=== PATIENT | male | born 1955 | race Caucasian/White ===

== ENCOUNTER 2019-02-25 13:05 | Day surgery (SDC) | payer BC ==
[2019-02-24 14:20] VITALS: BMI 35.9
[2019-02-25 13:38] LABS: HEMATOCRIT 44.1 % (35.4-49); HEMOGLOBIN 14.5 GM/dL (11.7-16.9); MCH 30.6 pg (25.7-33.7); MEAN CELL VOLUME 92.8 fl (80-96); MEAN PLT VOLUME 7.6 fl (7.5-11.1); PLATELET COUNT 323 K/MM3 (134-434); RBC 4.75 M/mm3 (4.00-5.60); RDW 13.3 % (11.9-15.9); WHITE BLOOD COUNT 5.7 K/mm3 (4.0-10.0)
[2019-02-25] MEDS ORDERED: LIDOCAINE VISCOUS 2% ORAL/TOP 20 ML UNIT-DOSE CUP ONE (13:38)
[2019-02-25 13:56] LABS: CALCIUM 9.4 mg/dL (8.5-10.1); CREATININE 1.2 mg/dL (0.55-1.3); POTASSIUM 4.2 mmol/L (3.5-5.1)
[2019-02-25 14:09] LABS: INR 1.18 (0.83-1.09); PROTHROMBIN TIME (PATIENT) 13.9 SEC (9.7-13.0)
[2019-02-25 14:12] LABS: ACTIVATED PTT 40.3 SECONDS (25.2-36.5)
[2019-02-25 14:51] VITALS: TEMP 97.5
[2019-02-25 15:16] VITALS: PULSE 59
[2019-02-25 15:36] VITALS: BP 111/71
--- NOTE | 2019-02-25 15:59 | PROC ---
Cardioversion Indication: Atrial flutter Risks and Benefits Explained: Yes Consent on Chart: Yes BEVERLEY done prior to Cardioversion: Yes BEVERLEY findings: no intracardiac thrombus Patient anticoagulated: Yes - Procedure Anesthesiologist present: Yes Medication given: propofol Joules delivered: 120x1 Rhythm post cardioversion: sr Remarks: Pt tolerated procedure well, no complications.
--- NOTE | 2019-02-25 16:02 | EKG ---
Test Reason : Blood Pressure : / mmHG Vent. Rate : 056 BPM Atrial Rate : 056 BPM P-R Int : 180 ms QRS Dur : 110 ms QT Int : 434 ms P-R-T Axes : 041 056 062 degrees QTc Int : 418 ms SINUS BRADYCARDIA OTHERWISE NORMAL ECG WHEN COMPARED WITH ECG OF 17-JUN-2011 00:32, NO SIGNIFICANT CHANGE WAS FOUND Confirmed by DAVIN CLARK MD ([id number]) on 02/25/2019 4:02:11 PM Referred By: Davin Clark Confirmed By:DAVIN CLARK MD
--- NOTE | 2019-02-25 16:08 | ECHO ---
Version: 1 Study ID: [id number] Institution Name Institution Address Institution Address Line #2 Telephone & email Name: RAOUL SANTANA Study Date: 02/25/2019, 2:27 PM Patient Location: [facility] : 1955 (MM/DD/YYYY) Gender: Male Age: 63 Years Ethnicity: T Reason For Study: R/O Vegetation Summary Statements The patient was in atrial flutter during the exam. The left ventricular size, thickness and function are normal The right ventricle is normal in size and function. There is trace mitral regurgitation. The aortic valve is bicuspid. Procedure: A 2D transesophageal echocardiogram with Doppler and color flow Doppler was performed. Informed cons ent for Transesophageal Echocardiogram, and use of a contrast agent as needed, was obtained prior to the pro cedure. The patient was brought to the endoscopy suite in a fasting state. An intravenous line was placed. A topical anesthetic agent was used for oropharangeal anesthesia. A bite block was inserted. IV concious sedat ion was administered using propafol. A multifrequency, multiplane transesopheageal echocardiographic endosco pe was inserted and manipulated in the standard fashion to achieve multiplane views. The transesophageal pr obe was passed without difficulty. The usual views were obtained; basal, mid-esophageal, transgastric and ao rtic views. The patient's vital signs, including blood pressure, heart rate, pulse oximetry and cardiac r hythm were monitored throughout the procedure and remained stable. The patient tolerated the procedure wel l without evidence of orophangeal or esophageal trauma. There were no complications. The patient was in atrial flutter during the exam. Left Ventricle The left ventricular size, thickness and function are normal. Right Ventricle The right ventricle is normal in size and function. Atria Normal left and right atrial size and function. No thrombus is detected in the left atrial appendage . The interatrial septum is intact with no evidence for an atrial septal defect. Mitral Valve There is trace mitral regurgitation. Tricuspid Valve No tricuspid regurgitation. Aortic Valve The aortic valve is bicuspid. No hemodynamically significant valvular aortic stenosis. No aortic regurgitation is present. Pulmonic Valve There is no pulmonic valvular regurgitation. Great Vessels Normal aortic arch, descending and ascending aorta. Pericardium/Pluera There is no pericardial effusion. MD Davin Clark 02/25/2019, 3:08 PM Ordering Physician: Davin Clark Performed By: Leny Garza
== END 2019-02-25 15:51 | disposition home or self-care (01) ==
LOC: JASU-ENDO 13:05
PROVIDERS: ATTEND Internal Medicine Cardiovascular Disease
PROC: 5A2204Z Restoration of Cardiac Rhythm, Single (ICD-10-PCS; 2019-02-25)
PROC: B246ZZ4 Ultrasonography of Right and Left Heart, Transesophageal (ICD-10-PCS; principal; 2019-02-25 14:00)
DX: I48.1 Persistent atrial fibrillation (principal)
CPT/HCPCS: 36415; 80048; 85027; 85610; 85730; 92960; 93005; 93010; 93312; 93325

== ENCOUNTER 2023-10-05 04:23 | Day surgery (SDC) | payer OTHER, BC ==
[2023-10-01 11:24] VITALS: BMI 34.2
[2023-10-05 08:36] VITALS: TEMP 98
[2023-10-05 09:50] VITALS: BP 124/74; PULSE 61; RESP 14
== END 2023-10-05 09:26 | disposition home or self-care (01) ==
LOC: JASU-ENDO 04:23
PROVIDERS: ATTEND Internal Medicine Gastroenterology
PROC: 0DBL8ZX Excision of Transverse Colon, Via Natural or Artificial Opening Endoscopic, Diagnostic (ICD-10-PCS; principal; 2023-10-05 08:00)
DX: Z12.11 Encounter for screening for malignant neoplasm of colon (principal); D12.3 Benign neoplasm of transverse colon; K57.30 Diverticulosis of large intestine without perforation or abscess without bleeding; K64.8 Other hemorrhoids
CPT/HCPCS: 88305-TC; 88342-TC